=== PATIENT | female | born 1960 | race Caucasian/White ===

== ENCOUNTER → 2018-01-17 | Outpatient (CLI) | payer OTHER ==
[2018-01-17 12:32] LABS: ADD MAN DIFF? NO
[2018-01-17 12:51] LABS: ALANINE AMINOTRANSFERASE 21 IU/L (13-69); ALBUMIN 4.1 g/dl (3.3-4.9); ALBUMIN/GLOBULIN RATIO 1.24; ALKALINE PHOSPHATASE 195 IU/L (42-121); ANION GAP 23 (8-16); ASPARTATE AMINO TRANSFERASE 21 IU/L (15-46); CARBON DIOXIDE 30 mmol/L (21-31); CHLORIDE 92 mmol/L (97-110); GLUCOSE 165 mg/dl (70-220); TOTAL PROTEIN 7.4 g/dl (6.1-8.1)
[2018-01-17 12:56] LABS: WHITE BLOOD COUNT 8.6 10^3/ul (4.8-10.8)
[2018-01-17 12:56] LABS: BASOPHILS % 0.5 % (0.0-2.0); EOSINOPHILS # 0.1 10^3/ul (0.0-0.5); EOSINOPHILS % 1.5 % (0.0-7.0); HEMATOCRIT 38.8 % (37.0-47.0); HEMOGLOBIN 12.7 g/dl (12.0-16.0); INR 0.87; LYMPHOCYTES # 1.5 10^3/ul (0.8-2.9); MEAN CORPUSCULAR HEMOGLOBIN 32.8 pg (29.0-33.0); MEAN CORPUSCULAR HGB CONC 32.7 g/dl (32.0-37.0); MEAN CORPUSCULAR VOLUME 100.3 fl (82.0-101.0); MEAN PLATELET VOLUME 10.4 fl (7.4-10.4); MONOCYTE # 0.8 10^3/ul (0.3-0.9); MONOCYTES % 9.7 % (0.0-11.0); NEUTROPHIL # 6.1 10^3/ul (1.6-7.5); NEUTROPHILS % 70.9 % (39.0-77.0); PLATELET COUNT 206 10^3/UL (140-415); PROTIME 11.9 Sec (11.9-14.9); PT RATIO 0.9; RED BLOOD COUNT 3.87 10^6/ul (4.20-5.40); RED CELL DISTRIBUTION WIDTH 12.6 % (11.5-14.5)
[2018-01-17 12:57] LABS: PARTIAL THROMBOPLASTIN TIME 30.5 Sec (25.0-35.0); SODIUM 138 mmol/L (135-144)
[2018-01-17 12:58] LABS: CALCIUM 9.5 mg/dl (8.4-10.2)
[2018-01-17 13:03] LABS: BLOOD UREA NITROGEN 62 mg/dl (7-20); CREATININE 10.48 mg/dl (0.44-1.00)
[2018-01-17 13:04] LABS: POTASSIUM 7.3 mmol/L (3.5-5.1)
== END | disposition home or self-care (01) ==
LOC: SDS 13:30 → LAB 10:40 → SDS 10:48
DX: I70.362 Atherosclerosis of unspecified type of bypass graft(s) of the extremities with gangrene, left leg (principal); Z53.9 Procedure and treatment not carried out, unspecified reason; I12.0 Hypertensive chronic kidney disease with stage 5 chronic kidney disease or end stage renal disease; N18.6 End stage renal disease; Z99.2 Dependence on renal dialysis
CPT/HCPCS: 80053; 82962; 85025; 85610; 85730

== ENCOUNTER 2018-01-23 07:59 | Day surgery (SDC) | payer OTHER ==
[2018-01-23 08:57] LABS: ADD MAN DIFF? NO
[2018-01-23 09:02] LABS: BASOPHILS % 0.6 % (0.0-2.0); EOSINOPHILS # 0.1 10^3/ul (0.0-0.5); EOSINOPHILS % 1.4 % (0.0-7.0); LYMPHOCYTES # 1.1 10^3/ul (0.8-2.9); LYMPHOCYTES % 15.7 % (15.0-51.0); MEAN CORPUSCULAR HEMOGLOBIN 32.7 pg (29.0-33.0); MEAN CORPUSCULAR HGB CONC 32.4 g/dl (32.0-37.0); MEAN CORPUSCULAR VOLUME 100.8 fl (82.0-101.0); MEAN PLATELET VOLUME 10.5 fl (7.4-10.4); MONOCYTE # 0.7 10^3/ul (0.3-0.9); MONOCYTES % 10.4 % (0.0-11.0); NEUTROPHILS % 71.6 % (39.0-77.0); PLATELET COUNT 184 10^3/UL (140-415); RED BLOOD COUNT 3.67 10^6/ul (4.20-5.40); RED CELL DISTRIBUTION WIDTH 12.7 % (11.5-14.5)
[2018-01-23 09:18] LABS: ALANINE AMINOTRANSFERASE 22 IU/L (13-69); ALBUMIN 4.1 g/dl (3.3-4.9); ALBUMIN/GLOBULIN RATIO 1.13; ALKALINE PHOSPHATASE 143 IU/L (42-121); ANION GAP 19 (8-16); ASPARTATE AMINO TRANSFERASE 27 IU/L (15-46); BILIRUBIN,INDIRECT 0.2 mg/dl (0-1.1); BILIRUBIN,TOTAL 0.2 mg/dl (0.2-1.3); CARBON DIOXIDE 36 mmol/L (21-31); CHLORIDE 88 mmol/L (97-110); GLUCOSE 147 mg/dl (70-220); INR 0.92; PROTIME 12.4 Sec (11.9-14.9); TOTAL PROTEIN 7.7 g/dl (6.1-8.1)
[2018-01-23 09:19] LABS: PARTIAL THROMBOPLASTIN TIME 28.7 Sec (25.0-35.0)
[2018-01-23 09:23] LABS: BLOOD UREA NITROGEN 36 mg/dl (7-20); CALCIUM 8.3 mg/dl (8.4-10.2); CREATININE 7.51 mg/dl (0.44-1.00); POTASSIUM 4.8 mmol/L (3.5-5.1); SODIUM 138 mmol/L (135-144)
[2018-01-23] MEDS ORDERED: LIDOCAINE 1% (MDV) 20 ML INJ (11:31)
[2018-01-23] MEDS ORDERED: HEPARIN 1000 UNITS/NS (A-LINE) 1,000 ML (11:31)
[2018-01-23] MEDS ORDERED: FENTAnyl 50 MCG/ML VIAL (11:34)
[2018-01-23] MEDS ORDERED: MIDAZOLAM 1 MG/ML 2 ML INJ (11:34)
[2018-01-23] MEDS ORDERED: IODIXANOL LOCM 100 ML BTL ×2 (11:34→11:52)
[2018-01-23] MEDS ORDERED: HEPARIN 1000 UNITS/ML 10 ML INJ (11:52)
[2018-01-23] MEDS ORDERED: hydrALAzine 20 MG INJ (12:15)
[2018-01-23] MEDS ORDERED: METOPROLOL 5 MG INJ (12:15)
[2018-01-23] MEDS ORDERED: IODIXANOL LOCM 50 ML BTL (12:17)
[2018-01-23] MEDS ORDERED: LABETALOL HCL 20MG INJ ×2 (12:26)
[2018-01-23] MEDS ORDERED: CLOPIDOGREL 300 MG TAB (12:38)
[2018-01-23] MEDS ORDERED: CLOPIDOGREL 75 MG TAB PO (13:00)
== END 2018-01-23 17:05 | disposition home or self-care (01) ==
LOC: SDS 07:59
DX: I70.261 Atherosclerosis of native arteries of extremities with gangrene, right leg (principal); I12.0 Hypertensive chronic kidney disease with stage 5 chronic kidney disease or end stage renal disease; N18.6 End stage renal disease; Z99.2 Dependence on renal dialysis; E11.9 Type 2 diabetes mellitus without complications
CPT/HCPCS: 37224; 75625; 75710; 76937; 80053; 82962; 85025; 85610; 85730